=== PATIENT | female | born 1975 | race Caucasian/White ===

== ENCOUNTER 2017-08-20 12:31 | Emergency (ER) | payer OTHER ==
--- NOTE | 2017-08-20 13:01 | EDPHY ---
H & P Stated Complaint: l abd pain/rectal pain for 3 days brought here by boyfriend from [place] Time Seen by Provider: 08/20/17 12:55 HPI/ROS: CHIEF COMPLAINT: Rectal pain HISTORY OF PRESENT ILLNESS: The patient presents to the ED with a 3 day history of severe rectal pain. The patient states that she thinks she is having severe diverticulitis. She reports that she did have some "moose meat" several days ago. She denies any additional complaints. The patient denies any history of recent surgery. She denies recent hospitalization. The patient denies melena or hematochezia. The patient denies fever, dysuria or respiratory complaints. She denies any history of rectal intercourse or a rectal foreign body. The patient rates her pain as a 9/10. REVIEW OF SYSTEMS: A comprehensive 10 point review of systems is otherwise negative aside from elements mentioned in the history of present illness. Source: Patient Exam Limitations: No limitations - Personal History LMP (Females 10-55): 8-14 Days Ago Current Tetanus/Diphtheria Vaccine: Yes - Medical/Surgical History Hx Asthma: No Hx Chronic Respiratory Disease: Yes Hx Diabetes: No Hx Cardiac Disease: No Hx Renal Disease: No Hx Cirrhosis: No Hx Alcoholism: No Hx HIV/AIDS: No Hx Splenectomy or Spleen Trauma: No Other PMH: diverticulitis/back spasms - Social History Smoking Status: Never smoked - Physical Exam Exam: General Appearance: Obese female, writhing on bed Eyes: Pupils equal and round no pallor or injection ENT, Mouth: Mucous membranes moist, poor dentition Respiratory: There are no retractions, lungs are clear to auscultation Cardiovascular: Regular rate and rhythm Gastrointestinal: General lower abdominal tenderness, poorly localized, no peritoneal signs Neurological: 5/5 strength all 4 extremities Skin: Warm and dry, no rashes Musculoskeletal: Neck is supple nontender Extremities: symmetrical, full range of motion Psychiatric: Patient is oriented X 3, there is no agitation Constitutional: Initial Vital Signs Temperature (C) 36.4 C 08/20/17 12:38 Heart Rate 101 H 08/20/17 12:38 Respiratory Rate 22 H 08/20/17 12:38 Blood Pressure 129/108 H 08/20/17 12:38 O2 Sat (%) 96 08/20/17 12:38 O2 Delivery Mode Room Air Allergies/Adverse Reactions: No Known Allergies Allergy (Unverified 08/20/17 12:36) Home Medications: Medication Instructions Recorded Albuterol 08/20/17 Cyclobenzaprine 08/20/17 VYVANSE 08/20/17 traMADol 08/20/17 Medical Decision Making - Diagnostics Imaging Results: Imaging Impressions Pelvis CT 08/20/17 14:44 Impression: 1. Mild perirectal soft tissue thickening/inflammation with no visible abscess 2. 4.5-cm right ovarian cyst. 3. Additional findings as above. Findings discussed with Dr. Jatinedr Hendrix on August 20, 2017 at 1541 hours. ED Course/Re-evaluation: The patient presents to the ED for evaluation of rectal pain. The patient is quite agitated and appears to be under the influence of drugs. She denies any drug use. Her physical examination demonstrates no evidence of obvious trauma. Rectal examination demonstrates no obvious of a perirectal abscess or hemorrhoid. The patient was quite uncomfortable in screaming when she was examined. Based upon this, a CT scan of the pelvis was ordered to exclude a pelvic abscess not seen on CT imaging. The patient was taken for CT scan of the pelvis which was normal. The patient's urine toxicology is positive for opioids and amphetamines. The patient did receive 1 mg of IV Ativan. She had multiple examinations in the ED over a 3 hour period. Her agitation has improved. At this point time the etiology of her symptoms are uncertain. I do feel it is reasonable to have her follow up with Gastroenterology outpatient for further evaluation of her rectal pain. She has been given the contact number of our on-call senior ios software engineer. Differential Diagnosis: Differential diagnosis considered includes thrombosed hemorrhoid, perirectal abscess, proctitis, rectal trauma, diverticulitis, ectopic - Data Points Laboratory Results: Laboratory Results 08/20/17 14:20 08/20/17 14:20 08/20/17 08/20/17 08/20/17 14:25 14:20 14:20 WBC 8.83 10^3/uL 10^3/uL (3.80-9.50) RBC 5.13 10^6/uL 10^6/uL (4.18-5.33) Hgb 15.0 g/dL g/dL (12.6-16.3) Hct 44.7 % % (38.0-47.0) MCV 87.1 fL fL (81.5-99.8) MCH 29.2 pg pg (27.9-34.1) MCHC 33.6 g/dL g/dL (32.4-36.7) RDW 13.2 % % (11.5-15.2) Plt Count 377 10^3/uL 10^3/uL (150-400) MPV 9.8 fL fL (8.7-11.7) Neut % (Auto) 55.1 % % (39.3-74.2) Lymph % (Auto) 30.9 % % (15.0-45.0) [place] % (Auto) 4.6 % % (4.5-13.0) Eos % (Auto) 8.7 % H % (0.6-7.6) Baso % (Auto) 0.5 % % (0.3-1.7) Nucleat RBC Rel Count 0.0 % % (0.0-0.2) Absolute Neuts (auto) 4.86 10^3/uL 10^3/uL (1.70-6.50) Absolute Lymphs (auto) 2.73 10^3/uL 10^3/uL (1.00-3.00) Absolute Monos (auto) 0.41 10^3/uL 10^3/uL (0.30-0.80) Absolute Eos (auto) 0.77 10^3/uL H 10^3/uL (0.03-0.40) Absolute Basos (auto) 0.04 10^3/uL 10^3/uL (0.02-0.10) Absolute Nucleated RBC 0.00 10^3/uL 10^3/uL (0-0.01) Immature Gran % 0.2 % % (0.0-1.1) Immature Gran # 0.02 10^3/uL 10^3/uL (0.00-0.10) Sodium Potassium Chloride Carbon Dioxide Anion Gap BUN Creatinine Estimated GFR Glucose Calcium Total Bilirubin Conjugated Bilirubin Unconjugated Bilirubin AST ALT Alkaline Phosphatase Total Protein Albumin Lipase Beta HCG, Qual NEGATIVE Urine Opiates Screen NON-NEGATIVE H (NEGATIVE) Urine Barbiturates NEGATIVE (NEGATIVE) Ur Phencyclidine Scrn NEGATIVE (NEGATIVE) Ur Amphetamine Screen NON-NEGATIVE H (NEGATIVE) U Benzodiazepines Scrn NEGATIVE (NEGATIVE) Urine Cocaine Screen NEGATIVE (NEGATIVE) U Marijuana (THC) Screen NON-NEGATIVE H (NEGATIVE) 08/20/17 08/20/17 14:20 13:54 WBC REJ RBC REJ Hgb REJ Hct REJ MCV REJ MCH REJ MCHC REJ RDW REJ Plt Count REJ MPV REJ Neut % (Auto) REJ Lymph % (Auto) REJ [place] % (Auto) REJ Eos % (Auto) REJ Baso % (Auto) REJ Nucleat RBC Rel Count REJ Absolute Neuts (auto) REJ Absolute Lymphs (auto) REJ Absolute Monos (auto) REJ Absolute Eos (auto) REJ Absolute Basos (auto) REJ Absolute Nucleated RBC REJ Immature Gran % REJ Immature Gran # REJ Sodium 144 mEq/L mEq/L (134-144) Potassium 4.1 mEq/L mEq/L (3.5-5.2) Chloride 109 mEq/L mEq/L (97-110) Carbon Dioxide 20 mEq/l L mEq/l (22-31) Anion Gap 15 mEq/L mEq/L (8-16) BUN 8 mg/dL mg/dL (7-23) Creatinine 0.6 mg/dL mg/dL (0.6-1.0) Estimated GFR > 60 Glucose 77 mg/dL mg/dL (70-100) Calcium 9.2 mg/dL mg/dL (8.5-10.4) Total Bilirubin 0.3 mg/dL mg/dL (0.1-1.4) Conjugated Bilirubin 0.1 mg/dL mg/dL (0.0-0.5) Unconjugated Bilirubin 0.2 mg/dL mg/dL (0.0-1.1) AST 26 IU/L IU/L (14-46) ALT 36 IU/L IU/L (9-52) Alkaline Phosphatase 73 IU/L IU/L (38-126) Total Protein 7.4 g/dL g/dL (6.3-8.2) Albumin 4.5 g/dL g/dL (3.5-5.0) Lipase 174 IU/L IU/L (23-300) Beta HCG, Qual Urine Opiates Screen Urine Barbiturates Ur Phencyclidine Scrn Ur Amphetamine Screen U Benzodiazepines Scrn Urine Cocaine Screen U Marijuana (THC) Screen Medications Given: Discontinued Medications Sodium Chloride (Ns) 1,000 mls @ 0 mls/hr IV EDNOW ONE; Wide Open PRN Reason: Protocol Stop: 08/20/17 13:06 Last Admin: 08/20/17 13:49 Dose: 1,000 mls Lorazepam (Ativan Injection) 1 mg IVP EDNOW ONE Stop: 08/20/17 13:07 Last Admin: 08/20/17 13:49 Dose: 1 mg Departure - Departure Disposition: Home, Routine, Self-Care Clinical Impression: Rectal pain Condition: Good Instructions: Rectal Pain (ED) Additional Instructions: 1. Please follow-up with your primary care provider as needed. 2. Your CT scan and blood work demonstrate no evidence of obvious disease. 3. Please follow up with your the senior ios software engineer you have been referred for evaluation of any ongoing rectal pain. Referrals: CRISSY WILCOX [Other] - As per Instructions Corey Marques MD [Medical Doctor] - As per Instructions
[2017-08-20] MEDS ORDERED: NS 1,000 ML IV ONE (13:05)
[2017-08-20] MEDS ORDERED: LORazepam 2 MG/ML INJ IVP ONE (13:06)
[2017-08-20 14:25] LABS: PLATELET COUNT 377 10^3/uL (150-400)
[2017-08-20 14:51] VITALS: RESP 16
[2017-08-20] MEDS ORDERED: IOPAMIDOL (ISOVUE-300) 100 ML BTL ONE (15:04)
[2017-08-20 15:53] VITALS: BP 131/83; PULSE 90; TEMP 98.1; O2SAT 93
== END 2017-08-20 16:20 | disposition home or self-care (01) ==
DX: K62.89 Other specified diseases of anus and rectum (principal); E86.9 Volume depletion, unspecified
CPT/HCPCS: 72193; 96361; 96374; 99285; J2060; Q9967; 80305